=== PATIENT | male | born 1985 | race African-American/Black ===

== ENCOUNTER 2016-09-04 11:09 | Emergency (ER) | payer OTHER ==
[~2016-09-04 11:09] MED LIST: CLIN-44 PO; HYDR-971 PO; SULF1TAB24 PO
[2016-09-04 11:10] VITALS: BP 149/77
[2016-09-04] MEDS ORDERED: TRAM-29 PO (11:49)
[2016-09-04] MEDS ORDERED: METH-37 PO (11:49)
--- NOTE | 2016-09-04 11:50 | PHYS DOC ---
Past Medical History Past Medical History: Asthma Additional Past Medical Histor: ABD ABSCESS Past Surgical History: No Surgical History Smoking: Cigar Alcohol Use: None Drug Use: None Adult General Chief Complaint Chief Complaint: BACK PAIN - NO INJURY [facility] HPI Patient is a 30 year old male who presents with right-sided low back pain starting today. He denies any injury to his back. 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 He denies focal weakness or numbness, saddle anesthesia or incontinence of bowel or bladder. He has not had nausea, vomiting, abdominal pain, or urinary symptoms. He has a history of sciatica. He has not taken any medication at home for his pain today. He does not have a PCP. Review of Systems Review of Systems Constitutional: Denies fever or chills. [] Respiratory: Denies cough or shortness of breath. [] Cardiovascular: Denies chest pain, palpitations or edema. [] GI: Denies abdominal pain, nausea, vomiting, bloody stools or diarrhea. [] : Denies dysuria, hematuria or urinary frequency. [] Musculoskeletal: Denies joint pain. Reports low-back pain. Integument: Denies rash or skin lesions. [] Neurologic: Denies headache, focal weakness or sensory changes. Denies incontinence or saddle anesthesia. Endocrine: Denies polyuria or polydipsia. [] Psych: Denies anxiety or depression. [] All systems reviewed and negative unless otherwise stated in the HPI. Allergies Allergies Allergies Coded Allergies Type Severity Reaction Last Updated Verified No Known Drug Allergies 10/11/13 No Physical Exam Physical Exam Constitutional: Well developed, well nourished, no acute distress, non-toxic appearance. [] HENT: Normocephalic, atraumatic, oropharynx moist. [] Eyes: PERRLA, EOMI, conjunctiva normal, no discharge. [] Neck: Normal range of motion, no tenderness, supple, no stridor. [] Cardiovascular: Heart rate regular rhythm, no murmur. [] Lungs & Thorax: Bilateral breath sounds clear to auscultation without wheezes, rales, or rhonchi. [] Abdomen: Bowel sounds normal, soft, no tenderness, no masses, no pulsatile masses. [] Skin: Warm, dry, no erythema, no rash. [] Back: No midline tenderness, no CVA tenderness. There is right lumbar paraspinal muscle tenderness with spasm. Extremities: No tenderness, ROM intact, no edema. 2+ DP pulses bilaterally. Light touch sensation intact distally. [] Neurologic: Alert and oriented X 3, normal motor function, normal sensory function, no focal deficits noted. [] Psychologic: Affect normal, judgement normal, mood normal. [] EKG EKG [] Radiology/Procedures Radiology/Procedures [] Course & Med Decision Making Course & Med Decision Making Pertinent Labs and Imaging studies reviewed. (See chart for details) [] Dragon Disclaimer Dragon Disclaimer This electronic medical record was generated, in whole or in part, using a voice recognition dictation system. Departure Departure Impression: Primary Impression: Sciatica Disposition: HOME, SELF-CARE Condition: STABLE Referrals: NO PCP (PCP) Patient Instructions: Sciatica, [id number] Additional Instructions: Please take the prescribed medications as directed. Do not drive or operate heavy machinery while taking pain medication or muscle relaxers. In order to help your back pain apply heat, practice gentle stretching, and massage. Follow-up with a primary care provider if your pain continues. Return to the emergency department if you have loss of bowel or bladder control , numbness between her legs, or other new or concerning symptoms. Scripts Methocarbamol (Robaxin)500 Mg [id number] Mg PO QID #20 TAB Prov:TYSON LARSEN 09/04/16 Tramadol Hcl (Ultram)50 Mg [id number] Mg PO Q6H PRN PAIN #20 TAB Prov:TYSON LARSEN 09/04/16 Problem Qualifiers Primary Impression: Sciatica Laterality: right Qualified Code: M54.31 - Sciatica, right side TYSON LARSEN Sep 04, 2016 11:50
== END 2016-09-04 11:50 | disposition home or self-care (01) ==
LOC: ER 11:09
DX: M54.31 Sciatica, right side (principal); J45.909 Unspecified asthma, uncomplicated; F17.210 Nicotine dependence, cigarettes, uncomplicated
CPT/HCPCS: 99283

== ENCOUNTER 2016-12-12 21:40 | Emergency (ER) | payer OTHER ==
[~2016-12-12] VITALS: Ht 188 cm; Wt 139.7 kg
[~2016-12-12 21:40] MED LIST changes: +ACET325T9 PO; +METH-37 PO; +TRAM-29 PO
[2016-12-12 22:02] VITALS: BP 131/77
[2016-12-12] MEDS ORDERED: IBUP-1060 PO (23:03)
[2016-12-12] MEDS ORDERED: PRED50TA PO (23:03)
[2016-12-12] MEDS ORDERED: LIDO20SO PO (23:03)
--- NOTE | 2016-12-12 23:04 | PHYS DOC ---
Past Medical History Past Medical History: Asthma, Other Additional Past Medical Histor: abd abscess, sciatica Past Surgical History: No Surgical History Alcohol Use: None Drug Use: None Adult General Chief Complaint Chief Complaint: SORE THROAT HPI HPI Patient is a 31 year old male who presents with enlarged left lymph node that began yesterday. Patient is also complaining of throat pain when he swallows. Patient denies any fever coughing or congestion. Denies any significant previous medical history. Review of Systems Review of Systems Constitutional: Denies fever or chills [] Eyes: Denies change in visual acuity, redness, or eye pain [] HENT: Enlarged lymph node on the left side, sore throat [] Respiratory: Denies cough or shortness of breath [] Cardiovascular: No additional information not addressed in HPI [] GI: Denies abdominal pain, nausea, vomiting, bloody stools or diarrhea [] : Denies dysuria or hematuria [] Musculoskeletal: Denies back pain or joint pain [] Integument: Denies rash or skin lesions [] Neurologic: Denies headache, focal weakness or sensory changes [] Endocrine: Denies polyuria or polydipsia [] Allergies Allergies Allergies Coded Allergies Type Severity Reaction Last Updated Verified No Known Drug Allergies 10/11/13 No Physical Exam Physical Exam Constitutional: Well developed, well nourished, no acute distress, non-toxic appearance. [] HENT: Normocephalic, atraumatic, bilateral external ears normal, oropharynx moist, no oral exudates, nose normal. [] Posterior fornix with no erythema, midline uvula, airway is open. +2 left anterior cervical adenopathy. Eyes: PERRLA, EOMI, conjunctiva normal, no discharge. [] Neck: Normal range of motion, no tenderness, supple, no stridor. [] Cardiovascular:Heart rate regular rhythm, no murmur [] Lungs & Thorax: Bilateral breath sounds clear to auscultation [] Abdomen: Bowel sounds normal, soft, no tenderness, no masses, no pulsatile masses. [] Skin: Warm, dry, no erythema, no rash. [] Back: No tenderness, no CVA tenderness. [] Extremities: No tenderness, no cyanosis, no clubbing, ROM intact, no edema. [] Neurologic: Alert and oriented X 3, normal motor function, normal sensory function, no focal deficits noted. [] Psychologic: Affect normal, judgement normal, mood normal. [] Current Patient Data Vital Signs Vital Signs Date Time Temp Pulse Resp B/P Pulse Ox O2 Delivery O2 Flow Rate FiO2 12/12/16 22:02 98.9 95 18 98 Room Air 98.9 EKG EKG [] Radiology/Procedures Radiology/Procedures [] Course & Med Decision Making Course & Med Decision Making Pertinent Labs and Imaging studies reviewed. (See chart for details) Patient is in the ED with left-sided anterior cervical adenopathy. Negative rapid strep. Discharged with prednisone. Recommended Tylenol and Motrin as well. Follow-up with primary care doctor in 1-2 weeks. Instructed to come to the ED at any point symptoms worsen or he develops any new concerning symptoms. Dragon Disclaimer Dragon Disclaimer This electronic medical record was generated, in whole or in part, using a voice recognition dictation system. Departure Departure Impression: Primary Impression: Lymphadenopathy of left cervical region Additional Impression: Viral pharyngitis Disposition: HOME, SELF-CARE Condition: STABLE Referrals: NO PCP (PCP) Follow-up with your own doctor in one to 2 weeks Patient Instructions: Viral Pharyngitis Additional Instructions: You were seen for an enlarged lymph node on the left side as well as sore throat. Take the prescribed medicines as ordered. Come back to the ED at any point symptoms worsen or you develop any new concerning symptoms. Take Tylenol or Motrin for pain or fever. Use saltwater gargles as well. Follow-up with your own doctor in a week. Scripts Lidocaine Hcl (Lidocaine Hcl Viscous)20 Mg/1 Ml Solution5 Ml PO TID #100 ML Prov:SHERRY CORLEY APRN 12/12/16 Prednisone 50 Mg Tablet1 Tab PO DAILY #5 TAB Prov:SHERRY CORLEY APRN 12/12/16 Ibuprofen 800 Mg [id number] Mg PO PRN Q6HRS PRN INFLAMMATION #30 TAB Prov:SHERRY CORLEY APRN 12/12/16 Problem Qualifiers SHERRY CORLEY APRN Dec 12, 2016 23:04
[2016-12-13 08:44] LABS: NEGATIVE OBC STREP NEG; POSITIVE OBC STREP POS
== END 2016-12-12 23:45 | disposition home or self-care (01) ==
LOC: ER 21:40
DX: R59.0 Localized enlarged lymph nodes (principal); J02.8 Acute pharyngitis due to other specified organisms; B97.89 Other viral agents as the cause of diseases classified elsewhere; J45.909 Unspecified asthma, uncomplicated
CPT/HCPCS: 87070; 87880; 99283

== ENCOUNTER → 2017-12-25 | Outpatient (CLI) | payer BC, OTHER ==
[2017-12-25] MEDS: LIDOCAINE 1% Multi-Dose 20 ML VIAL. ID (15:24)
[2017-12-25] MEDS: IOHEXOL 300 MG/ML 10ML VIAL. INT ART (15:24)
[2017-12-25] MEDS: GADOBUTROL 7.5 MMOL/7.5 ML VIAL INT ART (15:24)
== END | disposition home or self-care (01) ==
LOC: KCIC 14:23
DX: S43.432A Superior glenoid labrum lesion of left shoulder, initial encounter (principal); R60.0 Localized edema; X58.XXXA Exposure to other specified factors, initial encounter; Y93.89 Activity, other specified; Y92.89 Other specified places as the place of occurrence of the external cause; Y99.8 Other external cause status
CPT/HCPCS: 73040; 73222; A9585; Q9967